=== PATIENT | male | born 1975 | race Caucasian/White ===

== ENCOUNTER 2016-08-01 10:42 | Emergency (ER) | payer OTHER ==
[2016-08-01] MEDS ORDERED: ASPIRIN 81 MG CHEW TABLET As Ordered ONE (10:59)
--- NOTE | 2016-08-01 11:24 | REP ---
Chest x-ray: Two views. History: Chest pain. . Comparison study: No comparison studies . Findings: The lungs are well inflated and free of infiltrate. The pleural angles are sharp. The heart size is normal. Pulmonary vasculature is not increased. No significant bony abnormality is seen. EKG monitoring electrodes overlie the chest. Impression: Negative chest x-ray. Signed by Alfonso Bridges MD 08/01/2016 11:15 A
[2016-08-01] MEDS ORDERED: KETOROLAC 30 MG/ML VIAL (J1885) As Ordered ONE (11:34)
[2016-08-01 12:09] LABS: BASO % 0.9 % (0.0-1.0); EOS # 0.1 K/mm3 (0.0-0.50); EOS % 2.7 % (0.0-3.0); LARGE UNSTAINED CELL # 0.1 K/mm3 (0.0-0.4); LARGE UNSTAINED CELL % 1.2 % (0.0-4.0); LYMPH # 1.5 K/mm3 (1.5-4.5); LYMPH % 30.1 % (24.0-44.0); MEAN CORPUSCULAR HEMOGLOBIN 31.3 pg (27.0-33.0); MEAN CORPUSCULAR HGB CONC 35.2 g/dl (32.0-36.5); MONO # 0.2 K/mm3 (0.0-0.8); NEUTROPHILS # 2.8 K/mm3 (1.8-7.7); NEUTROPHILS % 60.1 % (36.0-66.0); PLATELET COUNT, AUTOMATED 234 k/mm3 (150-450); RED CELL DISTRIBUTION WIDTH 12.8 % (11.5-14.5); WHITE BLOOD COUNT 4.6 K/mm3 (4.0-10.0)
[2016-08-01 12:23] LABS: ANION GAP 9 MEQ/L (8-16); BLOOD UREA NITROGEN 15 MG/DL (7-18); CALCIUM LEVEL 8.8 MG/DL (8.5-10.1); CARBON DIOXIDE LEVEL 25 MEQ/L (21-32); CHLORIDE LEVEL 107 MEQ/L (98-107); CREATININE FOR GFR 1.31 MG/DL (0.70-1.30); GLOMERULAR FILTRATION RATE > 60.0 (>60); GLUCOSE, FASTING 95 MG/DL (70-105); POTASSIUM SERUM 4.1 MEQ/L (3.5-5.1); SODIUM LEVEL 141 MEQ/L (136-145)
[2016-08-01] MEDS ORDERED: GI COCKTAIL 50ML BTL(HYOSCYAMINE/MAALOX/LIDOCAINE VISCOUS)(1:3:1) As Ordered ONE (13:52)
[2016-08-01] MEDS ORDERED: SUCRALFATE 1 GM TAB As Ordered ONE (13:52)
[2016-08-01 14:12] LABS: ALBUMIN 4.2 GM/DL (3.2-5.2); ALBUMIN/GLOBULIN RATIO 1.27 (1.00-1.93); ALKALINE PHOSPHATASE 92 U/L (45-117); ALT/SGPT 40 U/L (12-78); AST/SGOT 20 U/L (15-37); BILIRUBIN,DIRECT < 0.1 MG/DL (0.0-0.2); BILIRUBIN,TOTAL 0.5 MG/DL (0.2-1.0); TOTAL PROTEIN 7.5 GM/DL (6.4-8.2)
--- NOTE | 2016-08-01 14:34 | ECGEPIP ---
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
--- NOTE | 2016-08-01 14:37 | ECGEPIP ---
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
--- NOTE | 2016-08-01 14:52 | EDDOCDS ---
Physician Documentation [facility] Name: Antonino Che Age: 40 yrs Sex: Male : 1975 Arrival Date: 08/01/2016 Time: 10:42 Bed OBSERVATION Private MD: Disposition: 08/01/16 14:26 Discharged to Home/Self Care. Impression: Other chest pain - suspicious for GI etiology. - Condition is Stable. - Discharge Instructions: Angina Pectoris, Nonspecific Chest Pain, Gastroesophageal Reflux Disease, Adult. - Prescriptions for Carafate 100 mg/mL Oral suspension - take 10 milliliter by ORAL route 4 times per day on an empty stomach 1 hour before meals and at bedtime; 200 milliliter. Protonix 40 mg Oral Tablet - take 1 tablet by ORAL route once daily; 30 tablet. - Medication Reconciliation, Local Pharmacy Hours form. - Follow up: Melissa Liu [facility]; When: Tomorrow. - Problem is new. - Symptoms are resolved. Historical: - Allergies: no known allergies; - Home Meds: 1. cyclobenzaprine 10 mg Oral tab took 07/30/16 2. methylprednisolone 4 mg Oral tab once daily (Last dose: 08/01/2016) 3. meloxicam 15 mg oral tab 1 tab once daily (Last dose: 07/31/2016) - PMHx: tendonitis left and right elboew; low back pain; - PSHx: none; - Social history: Smoking status: Patient states former smoker of tobacco. No barriers to communication noted, The patient speaks fluent Ukrainian, Speaks appropriately for age. - Family history: No immediate family members are acutely ill. - : The pt / caregiver states he / she is not on anticoagulants. Home medication list is obtained from the patient, pill bottles. - Exposure Risk Screening:: None identified. Vital Signs: 08/01 10:57 BP 142 / 83 (auto/); mb9 10:58 Pulse 74 MON; Pulse Ox 100% ; mb9 10:59 BP 144 / 76; Pulse 76; Resp 16; Temp 96.7(O); Pulse Ox 100% on R/A; Weight 74.84 kg / kr3 164.99 lbs; Height 5 ft. 7 in. (170.18 cm) (R); 11:27 Pulse 80 MON; Pulse Ox 98% ; mb9 11:27 BP 130 / 76 (auto/); mb9 11:57 Pulse 78 MON; Pulse Ox 97% ; mb9 11:57 BP 129 / 78 (auto/); mb9 12:27 Pulse 82 MON; Pulse Ox 97% ; mb9 12:27 BP 123 / 76 (auto/); mb9 12:57 Pulse 88 MON; Pulse Ox 96% ; mb9 12:57 BP 123 / 84 (auto/); mb9 13:27 Pulse 80 MON; Pulse Ox 97% ; mb9 13:27 BP 123 / 78 (auto/); mb9 13:57 Pulse 80 MON; Pulse Ox 97% ; mb9 13:57 BP 125 / 83 (auto/); mb9 14:27 BP 121 / 75 (auto/); mb9 14:27 Pulse 76 MON; Resp 17; Temp 98.7; Pulse Ox 97% ; mb9 10:59 Body Mass Index 25.84 (74.84 kg, 170.18 cm) kr3 MDM: 10:46 ECG WITH READING ER PHYS+CARDIAG ordered. EDMS 10:55 Aspirin Chewable Tablet 324 mg PO once ordered. jk8 10:57 Chest, 2 View (pa\E\lat) Ordered. EDMS 11:00 Financial registration complete. lg 11:24 Legger Press Operator/Pulse Ox/q 30 min VS ordered. sd1 11:24 IV Saline Lock ordered. sd1 11:24 Rhythm Strip to chart ordered. sd1 11:24 Undress patient appropriately for examination ordered. sd1 11:25 ketorolac 30 mg IVP once ordered. sd1 11:25 Basic Metabolic Profile Ordered. EDMS 11:25 CBC with Diff Ordered. EDMS 11:25 Cardiac Injury Profile Ordered. EDMS 11:25 D-Dimer Quant Ordered. EDMS 11:25 Troponin Ordered. EDMS 11:28 [facility] Payment Agreement was scanned into [email or web address] and attached to record. lg 12:24 Basic Metabolic Profile Reviewed. sd1 12:24 CBC with Diff Reviewed. sd1 12:24 D-Dimer Quant Reviewed. sd1 12:24 Troponin Reviewed. sd1 12:24 Chest, 2 View (pa\E\lat) Reviewed. sd1 12:27 Basic Metabolic Profile Reviewed. sd1 12:27 Cardiac Injury Profile Reviewed. sd1 12:27 Troponin Reviewed. sd1 12:34 REGULAR+DIET ordered. EDMS 13:16 Redraw CIP &Troponin (put time in details section) ordered. sd1 13:17 Repeat EKG (put time details section) ordered. sd1 13:27 Repeat EKG (put time details section) complete. ar3 13:27 Redraw CIP &Troponin (put time in details section) complete. ar3 13:28 ECG WITH READING ER PHYS ordered. EDMS 13:29 CARDIAC MARKER PANEL Ordered. EDMS 13:48 GI Cocktail - (Alum-Mag Hydroxide-Simeth 30 ml, Lidocaine 10 ml, Hyoscyamine 10 ml) PO sd1 once; Pre-mixed 50mL unit dose ordered. 13:48 Sucralfate 1 grams PO once ordered. sd1 13:49 Liver Profile Ordered. EDMS 13:49 Lipase Ordered. EDMS 14:17 CARDIAC MARKER PANEL Reviewed. sd1 14:17 Liver Profile Reviewed. sd1 14:17 Lipase Reviewed. sd1 Administered Medications: 11:01 Drug: Aspirin 324 mg [aspirin 81 mg chewable tablet (4 tabs)] Route: PO; mb9 11:59 Drug: ketorolac 30 mg [ketorolac 30 mg/mL (1 mL) injection solution (1 mL)] Route: IVP; mb9 Site: right antecubital; 13:58 Drug: GI Cocktail - (Alum-Mag Hydroxide-Simeth Suspension 225 mg-200 mg-25 mg/5 mL 30 mb9 ml, Lidocaine Liquid 2 % 10 ml, Hyoscyamine Liquid 10 ml) Route: PO; 13:59 Drug: Sucralfate 1 grams [sucralfate 1 gram tablet (1 tabs)] Route: PO; mb9 Signatures: Dispatcher [employer] Astrid Alas MD MD sd1 Joe Meraz, Reg Reg lg Yamile Hunt,RN RN kr3 Becca Alejo, MASS SPECTROSCOPIST MASS SPECTROSCOPIST ar3 Gurmeet Nichols,KIMBERLI RN mb9 Phi Mariano PA-C PA-C jk8 The chart was reviewed and I authenticate all verbal orders and agree with the evaluation and treatment provided.Attachments: 11:28 [facility] Payment Agreement lg MTDD
--- NOTE | 2016-08-01 14:52 | EDDOCDS ---
Nurse's Notes [facility] Name: Antonino Che Age: 40 yrs Sex: Male : 1975 Arrival Date: 08/01/2016 Time: 10:42 Bed OBSERVATION Private MD: Diagnosis: Other chest pain-suspicious for GI etiology Presentation: 08/01 10:46 Presenting complaint: Patient states: developed 'pounding heart beat' after taking kr3 Cyclobenzaprine on Tuesday noight. Was able to sleep Tuesday but woke on Tuesday with chest pain. Sleep with no disturbance Tuesday night and woke with no pain but developed as morning progressed. Aspirin was not taken prior to arrival. took ASA 07/31/16. Adult Sepsis Screening: The patient does not have new or worsening altered mentation. Patient's respiratory rate is less than 22. Systolic blood pressure is greater than 100. Patient has a qSOFA score of 0- Negative Sepsis Screen. Suicide/Homicide risk assessment- the patient denies having any suicidal and/or homicidal ideations and does not present with any other emotional, behavioral or mental health complaints. 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 Transition of care: patient was not received from another setting of care. 10:46 Method Of Arrival: Walkin/Carried/Asstd kr3 11:03 Acuity: EMMIE Level 3 mb9 Triage Assessment: 10:52 General: Appears in no apparent distress, comfortable, Behavior is cooperative. Pain: kr3 Location: center of chest Pain currently is 2 out of 10 on a pain scale. At worst was 6 out of 10 on a pain scale. Pain radiates to left arm Quality of pain is described as aching. Pt Declines HIV testing. Neurological: Level of Consciousness is awake, alert. Cardiovascular: Chest pain is described as mild, radiates to left arm(s) episodes are intermittent began 07/30/16. Respiratory: Respiratory effort is even, unlabored, Denies shortness of breath. GI: Denies nausea. Derm: Skin is pink, warm & dry. Historical: - Allergies: no known allergies; - Home Meds: 1. cyclobenzaprine 10 mg Oral tab took 07/30/16 2. methylprednisolone 4 mg Oral tab once daily (Last dose: 08/01/2016) 3. meloxicam 15 mg oral tab 1 tab once daily (Last dose: 07/31/2016) - PMHx: tendonitis left and right elboew; low back pain; - PSHx: none; - Social history: Smoking status: Patient states former smoker of tobacco. No barriers to communication noted, The patient speaks fluent Surinamese, Speaks appropriately for age. - Family history: No immediate family members are acutely ill. - : The pt / caregiver states he / she is not on anticoagulants. Home medication list is obtained from the patient, pill bottles. - Exposure Risk Screening:: None identified. Screenin:15 Screening information is obtained from the patient. Fall risk: No risks identified. mb9 Assistance ADL's: requires no assistance with activities of daily living. Abuse/DV Screen: The patient / caregiver reports he/she is: not in a situation that causes fear, pain or injury. Nutritional screening: No deficits noted. Advance Directives: There is no active DNR order. home support is adequate. Assessment: 11:15 General: Appears in no apparent distress, comfortable, Behavior is appropriate for age, mb9 cooperative. Neurological: Level of Consciousness is awake, alert, Oriented to person, place, time. Cardiovascular: Capillary refill < 3 seconds Heart tones S1 S2 present Rhythm is sinus rhythm No ectopy. Chest pain is described as Pain is 5 out of 10 on a pain scale. quality is dull and aching is located in anterior chest wall radiates to left arm(s) back episodes are continuous last > 5 minutes began 1 hour prior to arrival is aggravated by pt reports the pain is made worse with palpation. Cardiovascular: Chest pain pt reports he began a new exercise regiment on Tuesday. . Respiratory: Airway is patent Respiratory effort is even, unlabored, Breath sounds are clear bilaterally. Respiratory: Reports cough that is non-productive. 12:49 Reassessment: Patient appears in no apparent distress at this time. Patient states mb9 feeling better. Patient states symptoms have improved. General: Appears comfortable, Behavior is appropriate for age, cooperative. Neurological: Level of Consciousness is awake, alert, Oriented to person, place, time. Respiratory: Airway is patent Respiratory effort is even, unlabored. 12:49 Cardiovascular: Rhythm is sinus rhythm Chest pain is described as Pain is 1 out of 10 mb9 on a pain scale. 13:37 Reassessment: Patient states symptoms have not improved. Adult Sepsis Screening: The mb9 patient does not have new or worsening altered mentation. Patient's respiratory rate is less than 22. Systolic blood pressure is greater than 100. Patient has a qSOFA score of 0- Negative Sepsis Screen. General: Appears in no apparent distress, comfortable, Behavior is appropriate for age, cooperative. Cardiovascular: Rhythm is sinus rhythm Chest pain is described as Pain is 5 out of 10 on a pain scale. is aggravated by eating, pt states, "I just finished eating like 20 minutes ago and now the pain is back". 14:43 Reassessment: Patient appears in no apparent distress at this time. Patient states mb9 feeling better. General: Appears in no apparent distress, Behavior is appropriate for age, cooperative. Respiratory: Airway Respiratory effort is even, Breath sounds are clear bilaterally. Vital Signs: 10:57 BP 142 / 83 (auto/); mb9 10:58 Pulse 74 MON; Pulse Ox 100% ; mb9 10:59 BP 144 / 76; Pulse 76; Resp 16; Temp 96.7(O); Pulse Ox 100% on R/A; Weight 74.84 kg; kr3 Height 5 ft. 7 in. (170.18 cm) (R); 11:27 Pulse 80 MON; Pulse Ox 98% ; mb9 11:27 BP 130 / 76 (auto/); mb9 11:57 Pulse 78 MON; Pulse Ox 97% ; mb9 11:57 BP 129 / 78 (auto/); mb9 12:27 Pulse 82 MON; Pulse Ox 97% ; mb9 12:27 BP 123 / 76 (auto/); mb9 12:57 Pulse 88 MON; Pulse Ox 96% ; mb9 12:57 BP 123 / 84 (auto/); mb9 13:27 Pulse 80 MON; Pulse Ox 97% ; mb9 13:27 BP 123 / 78 (auto/); mb9 13:57 Pulse 80 MON; Pulse Ox 97% ; mb9 13:57 BP 125 / 83 (auto/); mb9 14:27 BP 121 / 75 (auto/); mb9 14:27 Pulse 76 MON; Resp 17; Temp 98.7; Pulse Ox 97% ; mb9 10:59 Body Mass Index 25.84 (74.84 kg, 170.18 cm) kr3 Vitals: 10:43 Log In Time: August 01, 2016 at 10:43. RN notified that patient meets Red Flag jlf criteria. ED Course: 10:43 Patient visited by Marycruz Seo PCA. jlf 10:43 Patient moved to Waiting jlf 10:44 Patient visited by Marycruz Seo PCA. jlf 10:44 Patient moved to PD kr3 10:53 Phi Mariano PA-C is PHCP. jk8 10:53 Astrid Fletcher MD is Attending Physician. jk8 10:53 Patient visited by Phi Mariano PA-C. jk8 10:55 Patient moved to 19 kr3 11:03 Triage Initiated mb9 11:11 Astrid Fletcher MD is Attending Physician. sd1 11:15 The patient / caregiver is instructed regarding the plan of care and ED course. Patient hunter has correct armband on for positive identification. Placed in gown. monitor and storage bin tender on. Pulse ox on. NIBP on. 11:28 [facility] Payment Agreement was scanned into View [employer] Chew and attached to record. lg 11:30 Patient visited by Susy Singh PCA. ct3 11:38 Chest, 2 View (pa\\E\\lat) Returned. EDMS 12:00 Basic Metabolic Profile Sent. mb9 12:00 CBC with Diff Sent. mb9 12:00 Cardiac Injury Profile Sent. mb9 12:00 D-Dimer Quant Sent. mb9 12:00 Troponin Sent. mb9 12:00 Inserted saline lock: 20 gauge in right antecubital area and blood collected. The mb9 patient tolerated the procedure well. 12:00 Missed attempts: 18 gauge in right antecubital area. mb9 12:32 Patient moved to OBSERVATION sd1 12:50 Patient visited by Susy Singh PCA. ct3 12:50 Diet: Patient given regular meal. ct3 13:46 CARDIAC MARKER PANEL Sent. mb9 13:57 Patient visited by Alyssa Abel. lr2 13:57 EKG done. (by ED staff). Reviewed by Astrid Fletcher MD. lr2 14:25 Melissa Liu [facility] is Referral Physician. sd1 14:27 Discontinued IV lock intact, bleeding controlled, pressure dressing applied, No mb9 redness/swelling at site. No procedures done that require assistance. 14:47 EKG-ADULT Returned. EDMS 14:47 ECG WITH READING ER PHYS Returned. EDMS Administered Medications: 11:01 Drug: Aspirin 324 mg [aspirin 81 mg chewable tablet (4 tabs)] Route: PO; mb9 11:59 Drug: ketorolac 30 mg [ketorolac 30 mg/mL (1 mL) injection solution (1 mL)] Route: IVP; mb9 Site: right antecubital; 13:58 Drug: GI Cocktail - (Alum-Mag Hydroxide-Simeth Suspension 225 mg-200 mg-25 mg/5 mL 30 mb9 ml, Lidocaine Liquid 2 % 10 ml, Hyoscyamine Liquid 10 ml) Route: PO; 13:59 Drug: Sucralfate 1 grams [sucralfate 1 gram tablet (1 tabs)] Route: PO; mb9 Order Results: Lab Order: Basic Metabolic Profile; SPEC'M 08/01/16 11:56 Test: GLUCOSE, FASTING; Value: 95; Range: 70-105; Units: MG/DL; Status: F Test: BLOOD UREA NITROGEN; Value: 15; Range: 7-18; Units: MG/DL; Status: F Test: CREATININE FOR GFR; Value: 1.31; Range: 0.70-1.30; Abnormal: Above high normal; Units: MG/DL; Status: F Test: GLOMERULAR FILTRATION RATE; Value: > 60.0; Range: >60; Status: F Test: SODIUM LEVEL; Value: 141; Range: 136-145; Units: MEQ/L; Status: F Test: POTASSIUM SERUM; Value: 4.1; Range: 3.5-5.1; Units: MEQ/L; Status: F Test: CHLORIDE LEVEL; Value: 107; Range: 98-107; Units: MEQ/L; Status: F Test: CARBON DIOXIDE LEVEL; Value: 25; Range: 21-32; Units: MEQ/L; Status: F Test: ANION GAP; Value: 9; Range: 8-16; Units: MEQ/L; Status: F Test: CALCIUM LEVEL; Value: 8.8; Range: 8.5-10.1; Units: MG/DL; Status: F Test Note: ; Units are mL/min/1.73 m2 Chronic Kidney Disease Staging per NKF: Stage I & II GFR >=60 Normal to Mildly Decreased Stage III GFR 30-59 Moderately Decreased Stage IV GFR 15-29 Severely Decreased Stage V GFR <15 Very Little GFR Left ESRD GFR <15 on INDUSTRIAL ENGINEERING TECHNOLOGIST Lab Order: CBC with Diff; SPEC'M 08/01/16 11:56 Test: WHITE BLOOD COUNT; Value: 4.6; Range: 4.0-10.0; Units: K/mm3; Status: F Test: RED BLOOD COUNT; Value: 4.93; Range: 4.30-6.10; Units: M/mm3; Status: F Test: HEMOGLOBIN; Value: 15.4; Range: 14.0-18.0; Units: g/dl; Status: F Test: HEMATOCRIT; Value: 43.9; Range: 42.0-52.0; Units: %; Status: F Test: MEAN CORPUSCULAR VOLUME; Value: 89.0; Range: 80.0-96.0; Units: fl; Status: F Test: MEAN CORPUSCULAR HEMOGLOBIN; Value: 31.3; Range: 27.0-33.0; Units: pg; Status: F Test: MEAN CORPUSCULAR HGB CONC; Value: 35.2; Range: 32.0-36.5; Units: g/dl; Status: F Test: RED CELL DISTRIBUTION WIDTH; Value: 12.8; Range: 11.5-14.5; Units: %; Status: F Test: PLATELET COUNT, AUTOMATED; Value: 234; Range: 150-450; Units: k/mm3; Status: F Test: NEUTROPHILS %; Value: 60.1; Range: 36.0-66.0; Units: %; Status: F Test: LYMPH %; Value: 30.1; Range: 24.0-44.0; Units: %; Status: F Test: MONO %; Value: 5.0; Range: 0.0-5.0; Units: %; Status: F Test: EOS %; Value: 2.7; Range: 0.0-3.0; Units: %; Status: F Test: BASO %; Value: 0.9; Range: 0.0-1.0; Units: %; Status: F Test: LARGE UNSTAINED CELL %; Value: 1.2; Range: 0.0-4.0; Units: %; Status: F Test: NEUTROPHILS #; Value: 2.8; Range: 1.8-7.7; Units: K/mm3; Status: F Test: LYMPH #; Value: 1.5; Range: 1.5-4.5; Units: K/mm3; Status: F Test: MONO #; Value: 0.2; Range: 0.0-0.8; Units: K/mm3; Status: F Test: EOS #; Value: 0.1; Range: 0.0-0.50; Units: K/mm3; Status: F Test: BASO #; Value: 0.0; Range: 0.0-0.2; Units: K/mm3; Status: F Test: LARGE UNSTAINED CELL #; Value: 0.1; Range: 0.0-0.4; Units: K/mm3; Status: F Lab Order: Cardiac Injury Profile; SPEC' 08/01/16 11:56 Test: CPK CREATINE PHOSPHOKINASE; Value: 198; Range: 39-308; Units: U/L; Status: F Test: CK-MB VALUE MASS; Value: 1.6; Range: 0.0-3.6; Units: NG/ML; Status: F Test: MB/CK RELATIVE INDEX; Value: 0.80; Range: < OR =4; Status: F Test Note: ; DIAGNOSIS CRITERIA MMB ng/ml Relative Index (RI) NON-AMI < or = 5 N/A ALMODOVAR ZONE > 5 < or = 4 AMI > 5 > 4 Lab Order: D-Dimer Quant; SPEC' 08/01/16 11:56 Test: D-DIMER QUANT; Value: 270.7; Range: <500; Units: ng/ml; Status: F Lab Order: Troponin; SPEC' 08/01/16 11:56 Test: TROPONIN I; Value: < 0.02; Range: < 0.10; Units: NG/ML; Status: F Test Note: ; Troponin I Reference Interval for Vend LOCI: 99th Percentile= 0.00-0.045 ng/ml Risk Stratification: <= 0.10 ng/ml Decreased Risk for Adverse Clinical Events. 0.10-1.50 ng/ml Increased Risk for Adverse Clinical Events. Evaluation of additional criterion and/or repeat testing in 2-6 hours is suggested to rule out myocardial damage. >= 1.50 ng/ml Indicative of Myocardial Injury. Lab Order: CARDIAC MARKER PANEL; SPEC'M 08/01/16 13:44 Test: CPK CREATINE PHOSPHOKINASE; Value: 198; Range: 39-308; Units: U/L; Status: F Test: CK-MB VALUE MASS; Value: 1.3; Range: 0.0-3.6; Units: NG/ML; Status: F Test: MB/CK RELATIVE INDEX; Value: 0.65; Range: < OR =4; Status: F Test: TROPONIN I; Value: < 0.02; Range: < 0.10; Units: NG/ML; Status: F Test Note: ; DIAGNOSIS CRITERIA MMB ng/ml Relative Index (RI) NON-AMI < or = 5 N/A ALMODOVAR ZONE > 5 < or = 4 AMI > 5 > 4 Lab Order: Liver Profile; SPEC'M 08/01/16 11:24 Test: AST/SGOT; Value: 20; Range: 15-37; Units: U/L; Status: F Test: ALT/SGPT; Value: 40; Range: 12-78; Units: U/L; Status: F Test: ALKALINE PHOSPHATASE; Value: 92; Range: 45-117; Units: U/L; Status: F Test: BILIRUBIN,TOTAL; Value: 0.5; Range: 0.2-1.0; Units: MG/DL; Status: F Test: BILIRUBIN,DIRECT; Value: < 0.1; Range: 0.0-0.2; Units: MG/DL; Status: F Test: TOTAL PROTEIN; Value: 7.5; Range: 6.4-8.2; Units: GM/DL; Status: F Test: ALBUMIN; Value: 4.2; Range: 3.2-5.2; Units: GM/DL; Status: F Test: ALBUMIN/GLOBULIN RATIO; Value: 1.27; Range: 1.00-1.93; Status: F Lab Order: Lipase; SPEC'M 08/01/16 11:24 Test: LIPASE; Value: 145; Range: 73-393; Units: U/L; Status: F Radiology Order: EKG-ADULT Test: EKG-ADULT REASON FOR EXAMINATION: Chest Pain; Stationary ECG Study; [facility] - ED; ; Test Date: 2016-08-01; Pat Name: [facility] Department:; Room: -; Gender: M Machine 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 .; ; Comparison study: No comparison studies .; ; Findings: The lungs are well inflated and free of infiltrate. The pleural; angles are sharp. The heart size is normal. Pulmonary vasculature is not; increased. No significant bony abnormality is seen. EKG monitoring electrodes; overlie the chest.; ; Impression:; ; Negative chest x-ray.; ; ; Signed by; Alfonso Bridges MD 08/01/2016 11:15 A; Radiology Order: ECG WITH READING ER PHYS Test: ECG WITH READING ER PHYS REASON FOR EXAMINATION: CHEST PAIN; Stationary ECG Study; [facility] - ED; ; Test Date: 2016-08-01; Pat Name: [facility] Department:; Room: -; Gender: M Machine Milker: felecia; : 1975 Requested By: Astrid Fletcher; Order Number: [id number] Reading MD: Keith Hodges; Measurements; Intervals [place]; Rate: 84 P: 19; IA: 161 QRS: 24; QRSD: 80 T: 34; QT: 344; QTc: 409; Interpretive Statements; SINUS RHYTHM; ; Electronically Signed On 08-01-2016 14:37:26 EST by Keith Hodges; Outcome: 14:26 Discharge ordered by Provider. sd1 14:27 Discharge Assessment: Patient awake, alert and oriented x 3. No cognitive and/or mb9 functional deficits noted. Patient verbalized understanding of disposition instructions. patient administered narcotics - no. The following High Risk Discharge criteria are identified: None. Condition: good Condition: stable Condition: improved. Discharge instructions given to patient, Instructed on discharge instructions, follow up and referral plans. medication usage, Demonstrated understanding of instructions, medications, Pt was receptive of discharge instructions/ teaching. Prescriptions given X 2. No special radiology studies were completed. Property :Personal belongings accompany Pt. 14:51 Patient left the ED. mb9 Signatures: Dispatcher [employer] EDMS Astrid Fletcher MD MD sd1 Joe Meraz, Reg Reg lg Yamile Hunt,RN RN kr3 Susy Singh, TIRE SERVICE TECHNICIAN TIRE SERVICE TECHNICIAN ct3 Marycruz Seo, TIRE SERVICE TECHNICIAN TIRE SERVICE TECHNICIAN jlf Gurmeet NicholsRN RN mb9 Phi Mariano, PA-C PA-C [id number] Alyssa Abel lr2 MUNIRA
--- NOTE | 2016-08-03 15:53 | EDDOCDS ---
Physician Documentation [facility] Name: Antonino Che Age: 40 yrs Sex: Male : 1975 Arrival Date: 08/01/2016 Time: 10:42 Bed OBSERVATION Private MD: Disposition: 08/01/16 14:26 Discharged to Home/Self Care. Impression: Other chest pain - suspicious for GI etiology. - Condition is Stable. - Discharge Instructions: Angina Pectoris, Nonspecific Chest Pain, Gastroesophageal Reflux Disease, Adult. - Prescriptions for Carafate 100 mg/mL Oral suspension - take 10 milliliter by ORAL route 4 times per day on an empty stomach 1 hour before meals and at bedtime; 200 milliliter. Protonix 40 mg Oral Tablet - take 1 tablet by ORAL route once daily; 30 tablet. - Medication Reconciliation, Local Pharmacy Hours form. - Follow up: Melissa Liu [facility]; When: Tomorrow. - Problem is new. - Symptoms are resolved. Historical: - Allergies: no known allergies; - Home Meds: 1. cyclobenzaprine 10 mg Oral tab took 07/30/16 2. methylprednisolone 4 mg Oral tab once daily (Last dose: 08/01/2016) 3. meloxicam 15 mg oral tab 1 tab once daily (Last dose: 07/31/2016) - PMHx: tendonitis left and right elboew; low back pain; - PSHx: none; - Social history: Smoking status: Patient states former smoker of tobacco. No barriers to communication noted, The patient speaks fluent Czech, Speaks appropriately for age. - Family history: No immediate family members are acutely ill. - : The pt / caregiver states he / she is not on anticoagulants. Home medication list is obtained from the patient, pill bottles. - Exposure Risk Screening:: None identified. Vital Signs: 08/01 10:57 BP 142 / 83 (auto/); mb9 10:58 Pulse 74 MON; Pulse Ox 100% ; mb9 10:59 BP 144 / 76; Pulse 76; Resp 16; Temp 96.7(O); Pulse Ox 100% on R/A; Weight 74.84 kg / kr3 164.99 lbs; Height 5 ft. 7 in. (170.18 cm) (R); 11:27 Pulse 80 MON; Pulse Ox 98% ; mb9 11:27 BP 130 / 76 (auto/); mb9 11:57 Pulse 78 MON; Pulse Ox 97% ; mb9 11:57 BP 129 / 78 (auto/); mb9 12:27 Pulse 82 MON; Pulse Ox 97% ; mb9 12:27 BP 123 / 76 (auto/); mb9 12:57 Pulse 88 MON; Pulse Ox 96% ; mb9 12:57 BP 123 / 84 (auto/); mb9 13:27 Pulse 80 MON; Pulse Ox 97% ; mb9 13:27 BP 123 / 78 (auto/); mb9 13:57 Pulse 80 MON; Pulse Ox 97% ; mb9 13:57 BP 125 / 83 (auto/); mb9 14:27 BP 121 / 75 (auto/); mb9 14:27 Pulse 76 MON; Resp 17; Temp 98.7; Pulse Ox 97% ; mb9 10:59 Body Mass Index 25.84 (74.84 kg, 170.18 cm) kr3 MDM: 10:46 ECG WITH READING ER PHYS+CARDIAG ordered. EDMS 10:55 Aspirin Chewable Tablet 324 mg PO once ordered. jk8 10:57 Chest, 2 View (pa\E\lat) Ordered. EDMS 11:00 Financial registration complete. lg 11:24 [place]hener/Pulse Ox/q 30 min VS ordered. sd1 11:24 IV Saline Lock ordered. sd1 11:24 Rhythm Strip to chart ordered. sd1 11:24 Undress patient appropriately for examination ordered. sd1 11:25 ketorolac 30 mg IVP once ordered. sd1 11:25 Basic Metabolic Profile Ordered. EDMS 11:25 CBC with Diff Ordered. EDMS 11:25 Cardiac Injury Profile Ordered. EDMS 11:25 D-Dimer Quant Ordered. EDMS 11:25 Troponin Ordered. EDMS 11:28 [facility] Payment Agreement was scanned into [employer] and attached to record. lg 12:24 Basic Metabolic Profile Reviewed. sd1 12:24 CBC with Diff Reviewed. sd1 12:24 D-Dimer Quant Reviewed. sd1 12:24 Troponin Reviewed. sd1 12:24 Chest, 2 View (pa\E\lat) Reviewed. sd1 12:27 Basic Metabolic Profile Reviewed. sd1 12:27 Cardiac Injury Profile Reviewed. sd1 12:27 Troponin Reviewed. sd1 12:34 REGULAR+DIET ordered. EDMS 13:16 Redraw CIP &Troponin (put time in details section) ordered. sd1 13:17 Repeat EKG (put time details section) ordered. sd1 13:27 Repeat EKG (put time details section) complete. ar3 13:27 Redraw CIP &Troponin (put time in details section) complete. ar3 13:28 ECG WITH READING ER PHYS ordered. EDMS 13:29 CARDIAC MARKER PANEL Ordered. EDMS 13:48 GI Cocktail - (Alum-Mag Hydroxide-Simeth 30 ml, Lidocaine 10 ml, Hyoscyamine 10 ml) PO sd1 once; Pre-mixed 50mL unit dose ordered. 13:48 Sucralfate 1 grams PO once ordered. sd1 13:49 Liver Profile Ordered. EDMS 13:49 Lipase Ordered. EDMS 14:17 CARDIAC MARKER PANEL Reviewed. sd1 14:17 Liver Profile Reviewed. sd1 14:17 Lipase Reviewed. sd1 16:02 T-Sheet-- Draft Copy was scanned into [employer] and attached to record. gb 16:02 ECG/EKG was scanned into [employer] and attached to record. gb Administered Medications: 11:01 Drug: Aspirin 324 mg [aspirin 81 mg chewable tablet (4 tabs)] Route: PO; mb9 11:59 Drug: ketorolac 30 mg [ketorolac 30 mg/mL (1 mL) injection solution (1 mL)] Route: IVP; mb9 Site: right antecubital; 13:58 Drug: GI Cocktail - (Alum-Mag Hydroxide-Simeth Suspension 225 mg-200 mg-25 mg/5 mL 30 mb9 ml, Lidocaine Liquid 2 % 10 ml, Hyoscyamine Liquid 10 ml) Route: PO; 13:59 Drug: Sucralfate 1 grams [sucralfate 1 gram tablet (1 tabs)] Route: PO; mb9 Signatures: Dispatcher [employer] EDMS Astrid Fletcher MD MD sd1 Siomara Marquez, Reg Reg gb Joe Meraz, Reg Reg lg Yamile Hunt,RN RN kr3 Becca Alejo, NEEDLE PUNCH MACHINE OPERATOR NEEDLE PUNCH MACHINE OPERATOR ar3 Gurmeet NicholsRN RN mb9 Phi Mariano PA-C PA-C jk8 The chart was reviewed and I authenticate all verbal orders and agree with the evaluation and treatment provided.Attachments: 11:28 [facility] Payment Agreement lg 16:02 T-Sheet-- Draft Copy gb 16:02 ECG/EKG gb Chart Complete MTDD
--- NOTE | 2016-08-03 15:53 | EDDOCDS ---
Physician Documentation [facility] Name: Antonino Che Age: 40 yrs Sex: Male : 1975 Arrival Date: 08/01/2016 Time: 10:42 Bed OBSERVATION Private MD: Disposition: 08/01/16 14:26 Discharged to Home/Self Care. Impression: Other chest pain - suspicious for GI etiology. - Condition is Stable. - Discharge Instructions: Angina Pectoris, Nonspecific Chest Pain, Gastroesophageal Reflux Disease, Adult. - Prescriptions for Carafate 100 mg/mL Oral suspension - take 10 milliliter by ORAL route 4 times per day on an empty stomach 1 hour before meals and at bedtime; 200 milliliter. Protonix 40 mg Oral Tablet - take 1 tablet by ORAL route once daily; 30 tablet. - Medication Reconciliation, Local Pharmacy Hours form. - Follow up: Melissa Liu [facility]; When: Tomorrow. - Problem is new. - Symptoms are resolved. Historical: - Allergies: no known allergies; - Home Meds: 1. cyclobenzaprine 10 mg Oral tab took 07/30/16 2. methylprednisolone 4 mg Oral tab once daily (Last dose: 08/01/2016) 3. meloxicam 15 mg oral tab 1 tab once daily (Last dose: 07/31/2016) - PMHx: tendonitis left and right elboew; low back pain; - PSHx: none; - Social history: Smoking status: Patient states former smoker of tobacco. No barriers to communication noted, The patient speaks fluent Romansh, Speaks appropriately for age. - Family history: No immediate family members are acutely ill. - : The pt / caregiver states he / she is not on anticoagulants. Home medication list is obtained from the patient, pill bottles. - Exposure Risk Screening:: None identified. Vital Signs: 08/01 10:57 BP 142 / 83 (auto/); mb9 10:58 Pulse 74 MON; Pulse Ox 100% ; mb9 10:59 BP 144 / 76; Pulse 76; Resp 16; Temp 96.7(O); Pulse Ox 100% on R/A; Weight 74.84 kg / kr3 164.99 lbs; Height 5 ft. 7 in. (170.18 cm) (R); 11:27 Pulse 80 MON; Pulse Ox 98% ; mb9 11:27 BP 130 / 76 (auto/); mb9 11:57 Pulse 78 MON; Pulse Ox 97% ; mb9 11:57 BP 129 / 78 (auto/); mb9 12:27 Pulse 82 MON; Pulse Ox 97% ; mb9 12:27 BP 123 / 76 (auto/); mb9 12:57 Pulse 88 MON; Pulse Ox 96% ; mb9 12:57 BP 123 / 84 (auto/); mb9 13:27 Pulse 80 MON; Pulse Ox 97% ; mb9 13:27 BP 123 / 78 (auto/); mb9 13:57 Pulse 80 MON; Pulse Ox 97% ; mb9 13:57 BP 125 / 83 (auto/); mb9 14:27 BP 121 / 75 (auto/); mb9 14:27 Pulse 76 MON; Resp 17; Temp 98.7; Pulse Ox 97% ; mb9 10:59 Body Mass Index 25.84 (74.84 kg, 170.18 cm) kr3 MDM: 10:46 ECG WITH READING ER PHYS+CARDIAG ordered. EDMS 10:55 Aspirin Chewable Tablet 324 mg PO once ordered. jk8 10:57 Chest, 2 View (pa\E\lat) Ordered. EDMS 11:00 Financial registration complete. lg 11:24 Sourcing Internship/Pulse Ox/q 30 min VS ordered. sd1 11:24 IV Saline Lock ordered. sd1 11:24 Rhythm Strip to chart ordered. sd1 11:24 Undress patient appropriately for examination ordered. sd1 11:25 ketorolac 30 mg IVP once ordered. sd1 11:25 Basic Metabolic Profile Ordered. EDMS 11:25 CBC with Diff Ordered. EDMS 11:25 Cardiac Injury Profile Ordered. EDMS 11:25 D-Dimer Quant Ordered. EDMS 11:25 Troponin Ordered. EDMS 11:28 [facility] [place] Agreement was scanned into [employer] and attached to record. lg 12:24 Basic Metabolic Profile Reviewed. sd1 12:24 CBC with Diff Reviewed. sd1 12:24 D-Dimer Quant Reviewed. sd1 12:24 Troponin Reviewed. sd1 12:24 Chest, 2 View (pa\E\lat) Reviewed. sd1 12:27 Basic Metabolic Profile Reviewed. sd1 12:27 Cardiac Injury Profile Reviewed. sd1 12:27 Troponin Reviewed. sd1 12:34 REGULAR+DIET ordered. EDMS 13:16 Redraw CIP &Troponin (put time in details section) ordered. sd1 13:17 Repeat EKG (put time details section) ordered. sd1 13:27 Repeat EKG (put time details section) complete. ar3 13:27 Redraw CIP &Troponin (put time in details section) complete. ar3 13:28 ECG WITH READING ER PHYS ordered. EDMS 13:29 CARDIAC MARKER PANEL Ordered. EDMS 13:48 GI Cocktail - (Alum-Mag Hydroxide-Simeth 30 ml, Lidocaine 10 ml, Hyoscyamine 10 ml) PO sd1 once; Pre-mixed 50mL unit dose ordered. 13:48 Sucralfate 1 grams PO once ordered. sd1 13:49 Liver Profile Ordered. EDMS 13:49 Lipase Ordered. EDMS 14:17 CARDIAC MARKER PANEL Reviewed. sd1 14:17 Liver Profile Reviewed. sd1 14:17 Lipase Reviewed. sd1 16:02 T-Sheet-- Draft Copy was scanned into [employer] and attached to record. gb 16:02 ECG/EKG was scanned into [employer] and attached to record. gb Administered Medications: 11:01 Drug: Aspirin 324 mg [aspirin 81 mg chewable tablet (4 tabs)] Route: PO; mb9 11:59 Drug: ketorolac 30 mg [ketorolac 30 mg/mL (1 mL) injection solution (1 mL)] Route: IVP; mb9 Site: right antecubital; 13:58 Drug: GI Cocktail - (Alum-Mag Hydroxide-Simeth Suspension 225 mg-200 mg-25 mg/5 mL 30 mb9 ml, Lidocaine Liquid 2 % 10 ml, Hyoscyamine Liquid 10 ml) Route: PO; 13:59 Drug: Sucralfate 1 grams [sucralfate 1 gram tablet (1 tabs)] Route: PO; mb9 Signatures: Dispatcher [employer] EDMS Astrid Fletcher MD MD sd1 Siomara Marquez, Reg Reg gb Joe Meraz, Reg Reg lg Yamile Hunt,RN RN kr3 Becca Alejo, BOX HINGE AND LOCK ATTACHER BOX HINGE AND LOCK ATTACHER ar3 Gurmeet NicholsRN RN mb9 Phi Mariano PA-C PA-C jk8 The chart was reviewed and I authenticate all verbal orders and agree with the evaluation and treatment provided.Attachments: 11:28 [facility] [place] [place] Agreement lg 16:02 T-Sheet-- Draft Copy gb 16:02 ECG/EKG gb Chart Complete MTDD
--- NOTE | 2016-08-03 15:53 | EDDOCDS ---
Nurse's Notes [facility] Name: Antonino Che Age: 40 yrs Sex: Male : 1975 Arrival Date: 08/01/2016 Time: 10:42 Bed OBSERVATION Private MD: Diagnosis: Other chest pain-suspicious for GI etiology Presentation: 08/01 10:46 Presenting complaint: Patient states: developed 'pounding heart beat' after taking kr3 Cyclobenzaprine on Tuesday noight. Was able to sleep Tuesday but woke on Tuesday with chest pain. Sleep with no disturbance Tuesday night and woke with no pain but developed as morning progressed. Aspirin was not taken prior to arrival. took ASA 07/31/16. Adult Sepsis Screening: The patient does not have new or worsening altered mentation. Patient's respiratory rate is less than 22. Systolic blood pressure is greater than 100. Patient has a qSOFA score of 0- Negative Sepsis Screen. Suicide/Homicide risk assessment- the patient denies having any suicidal and/or homicidal ideations and does not present with any other emotional, behavioral or mental health complaints. 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 Transition of care: patient was not received from another setting of care. 10:46 Method Of Arrival: Walkin/Carried/Asstd kr3 11:03 Acuity: EMMIE Level 3 mb9 Triage Assessment: 10:52 General: Appears in no apparent distress, comfortable, Behavior is cooperative. Pain: kr3 Location: center of chest Pain currently is 2 out of 10 on a pain scale. At worst was 6 out of 10 on a pain scale. Pain radiates to left arm Quality of pain is described as aching. Pt Declines HIV testing. Neurological: Level of Consciousness is awake, alert. Cardiovascular: Chest pain is described as mild, radiates to left arm(s) episodes are intermittent began 07/30/16. Respiratory: Respiratory effort is even, unlabored, Denies shortness of breath. GI: Denies nausea. Derm: Skin is pink, warm & dry. Historical: - Allergies: no known allergies; - Home Meds: 1. cyclobenzaprine 10 mg Oral tab took 07/30/16 2. methylprednisolone 4 mg Oral tab once daily (Last dose: 08/01/2016) 3. meloxicam 15 mg oral tab 1 tab once daily (Last dose: 07/31/2016) - PMHx: tendonitis left and right elboew; low back pain; - PSHx: none; - Social history: Smoking status: Patient states former smoker of tobacco. No barriers to communication noted, The patient speaks fluent Telugu, Speaks appropriately for age. - Family history: No immediate family members are acutely ill. - : The pt / caregiver states he / she is not on anticoagulants. Home medication list is obtained from the patient, pill bottles. - Exposure Risk Screening:: None identified. Screenin:15 Screening information is obtained from the patient. Fall risk: No risks identified. mb9 Assistance ADL's: requires no assistance with activities of daily living. Abuse/DV Screen: The patient / caregiver reports he/she is: not in a situation that causes fear, pain or injury. Nutritional screening: No deficits noted. Advance Directives: There is no active DNR order. home support is adequate. Assessment: 11:15 General: Appears in no apparent distress, comfortable, Behavior is appropriate for age, mb9 cooperative. Neurological: Level of Consciousness is awake, alert, Oriented to person, place, time. Cardiovascular: Capillary refill < 3 seconds Heart tones S1 S2 present Rhythm is sinus rhythm No ectopy. Chest pain is described as Pain is 5 out of 10 on a pain scale. quality is dull and aching is located in anterior chest wall radiates to left arm(s) back episodes are continuous last > 5 minutes began 1 hour prior to arrival is aggravated by pt reports the pain is made worse with palpation. Cardiovascular: Chest pain pt reports he began a new exercise regiment on Tuesday. . Respiratory: Airway is patent Respiratory effort is even, unlabored, Breath sounds are clear bilaterally. Respiratory: Reports cough that is non-productive. 12:49 Reassessment: Patient appears in no apparent distress at this time. Patient states mb9 feeling better. Patient states symptoms have improved. General: Appears comfortable, Behavior is appropriate for age, cooperative. Neurological: Level of Consciousness is awake, alert, Oriented to person, place, time. Respiratory: Airway is patent Respiratory effort is even, unlabored. 12:49 Cardiovascular: Rhythm is sinus rhythm Chest pain is described as Pain is 1 out of 10 mb9 on a pain scale. 13:37 Reassessment: Patient states symptoms have not improved. Adult Sepsis Screening: The mb9 patient does not have new or worsening altered mentation. Patient's respiratory rate is less than 22. Systolic blood pressure is greater than 100. Patient has a qSOFA score of 0- Negative Sepsis Screen. General: Appears in no apparent distress, comfortable, Behavior is appropriate for age, cooperative. Cardiovascular: Rhythm is sinus rhythm Chest pain is described as Pain is 5 out of 10 on a pain scale. is aggravated by eating, pt states, "I just finished eating like 20 minutes ago and now the pain is back". 14:43 Reassessment: Patient appears in no apparent distress at this time. Patient states mb9 feeling better. General: Appears in no apparent distress, Behavior is appropriate for age, cooperative. Respiratory: Airway Respiratory effort is even, Breath sounds are clear bilaterally. Vital Signs: 10:57 BP 142 / 83 (auto/); mb9 10:58 Pulse 74 MON; Pulse Ox 100% ; mb9 10:59 BP 144 / 76; Pulse 76; Resp 16; Temp 96.7(O); Pulse Ox 100% on R/A; Weight 74.84 kg; kr3 Height 5 ft. 7 in. (170.18 cm) (R); 11:27 Pulse 80 MON; Pulse Ox 98% ; mb9 11:27 BP 130 / 76 (auto/); mb9 11:57 Pulse 78 MON; Pulse Ox 97% ; mb9 11:57 BP 129 / 78 (auto/); mb9 12:27 Pulse 82 MON; Pulse Ox 97% ; mb9 12:27 BP 123 / 76 (auto/); mb9 12:57 Pulse 88 MON; Pulse Ox 96% ; mb9 12:57 BP 123 / 84 (auto/); mb9 13:27 Pulse 80 MON; Pulse Ox 97% ; mb9 13:27 BP 123 / 78 (auto/); mb9 13:57 Pulse 80 MON; Pulse Ox 97% ; mb9 13:57 BP 125 / 83 (auto/); mb9 14:27 BP 121 / 75 (auto/); mb9 14:27 Pulse 76 MON; Resp 17; Temp 98.7; Pulse Ox 97% ; mb9 10:59 Body Mass Index 25.84 (74.84 kg, 170.18 cm) kr3 Vitals: 10:43 Log In Time: August 01, 2016 at 10:43. RN notified that patient meets Red Flag jlf criteria. ED Course: 10:43 Patient visited by Marycruz Seo PCA. jlf 10:43 Patient moved to Waiting jlf 10:44 Patient visited by Marycruz Seo PCA. jlf 10:44 Patient moved to PD kr3 10:53 Phi Mariano PA-C is PHCP. jk8 10:53 Astrid Fletcher MD is Attending Physician. jk8 10:53 Patient visited by Phi Mariano PA-C. jk8 10:55 Patient moved to 19 kr3 11:03 Triage Initiated mb9 11:11 Astrid Fletcher MD is Attending Physician. sd1 11:15 The patient / caregiver is instructed regarding the plan of care and ED course. Patient hunter has correct armband on for positive identification. Placed in gown. 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 Pulse ox on. NIBP on. 11:28 [facility] Payment Agreement was scanned into [employer] and attached to record. lg 11:30 Patient visited by Susy Singh PCA. ct3 11:38 Chest, 2 View (pa\\E\\lat) Returned. EDMS 12:00 Basic Metabolic Profile Sent. mb9 12:00 CBC with Diff Sent. mb9 12:00 Cardiac Injury Profile Sent. mb9 12:00 D-Dimer Quant Sent. mb9 12:00 Troponin Sent. mb9 12:00 Inserted saline lock: 20 gauge in right antecubital area and blood collected. The mb9 patient tolerated the procedure well. 12:00 Missed attempts: 18 gauge in right antecubital area. mb9 12:32 Patient moved to OBSERVATION sd1 12:50 Patient visited by Susy Singh PCA. ct3 12:50 Diet: Patient given regular meal. ct3 13:46 CARDIAC MARKER PANEL Sent. mb9 13:57 Patient visited by Alyssa Abel. lr2 13:57 EKG done. (by ED staff). Reviewed by Astrid Fletcher MD. lr2 14:25 Melissa Liu [facility] is Referral Physician. sd1 14:27 Discontinued IV lock intact, bleeding controlled, pressure dressing applied, No mb9 redness/swelling at site. No procedures done that require assistance. 14:47 EKG-ADULT Returned. EDMS 14:47 ECG WITH READING ER PHYS Returned. EDMS 16:02 T-Sheet-- Draft Copy was scanned into [employer] and attached to record. gb 16:02 ECG/EKG was scanned into [employer] and attached to record. gb Administered Medications: 11:01 Drug: Aspirin 324 mg [aspirin 81 mg chewable tablet (4 tabs)] Route: PO; mb9 11:59 Drug: ketorolac 30 mg [ketorolac 30 mg/mL (1 mL) injection solution (1 mL)] Route: IVP; mb9 Site: right antecubital; 13:58 Drug: GI Cocktail - (Alum-Mag Hydroxide-Simeth Suspension 225 mg-200 mg-25 mg/5 mL 30 mb9 ml, Lidocaine Liquid 2 % 10 ml, Hyoscyamine Liquid 10 ml) Route: PO; 13:59 Drug: Sucralfate 1 grams [sucralfate 1 gram tablet (1 tabs)] Route: PO; mb9 Order Results: Lab Order: Basic Metabolic Profile; SPEC'M 08/01/16 11:56 Test: GLUCOSE, FASTING; Value: 95; Range: 70-105; Units: MG/DL; Status: F Test: BLOOD UREA NITROGEN; Value: 15; Range: 7-18; Units: MG/DL; Status: F Test: CREATININE FOR GFR; Value: 1.31; Range: 0.70-1.30; Abnormal: Above high normal; Units: MG/DL; Status: F Test: GLOMERULAR FILTRATION RATE; Value: > 60.0; Range: >60; Status: F Test: SODIUM LEVEL; Value: 141; Range: 136-145; Units: MEQ/L; Status: F Test: POTASSIUM SERUM; Value: 4.1; Range: 3.5-5.1; Units: MEQ/L; Status: F Test: CHLORIDE LEVEL; Value: 107; Range: 98-107; Units: MEQ/L; Status: F Test: CARBON DIOXIDE LEVEL; Value: 25; Range: 21-32; Units: MEQ/L; Status: F Test: ANION GAP; Value: 9; Range: 8-16; Units: MEQ/L; Status: F Test: CALCIUM LEVEL; Value: 8.8; Range: 8.5-10.1; Units: MG/DL; Status: F Test Note: ; Units are mL/min/1.73 m2 Chronic Kidney Disease Staging per NKF: Stage I & II GFR >=60 Normal to Mildly Decreased Stage III GFR 30-59 Moderately Decreased Stage IV GFR 15-29 Severely Decreased Stage V GFR <15 Very Little GFR Left ESRD GFR <15 on HIP HOP DANCER Lab Order: CBC with Diff; JOCY 08/01/16 11:56 Test: WHITE BLOOD COUNT; Value: 4.6; Range: 4.0-10.0; Units: K/mm3; Status: F Test: RED BLOOD COUNT; Value: 4.93; Range: 4.30-6.10; Units: M/mm3; Status: F Test: HEMOGLOBIN; Value: 15.4; Range: 14.0-18.0; Units: g/dl; Status: F Test: HEMATOCRIT; Value: 43.9; Range: 42.0-52.0; Units: %; Status: F Test: MEAN CORPUSCULAR VOLUME; Value: 89.0; Range: 80.0-96.0; Units: fl; Status: F Test: MEAN CORPUSCULAR HEMOGLOBIN; Value: 31.3; Range: 27.0-33.0; Units: pg; Status: F Test: MEAN CORPUSCULAR HGB CONC; Value: 35.2; Range: 32.0-36.5; Units: g/dl; Status: F Test: RED CELL DISTRIBUTION WIDTH; Value: 12.8; Range: 11.5-14.5; Units: %; Status: F Test: PLATELET COUNT, AUTOMATED; Value: 234; Range: 150-450; Units: k/mm3; Status: F Test: NEUTROPHILS %; Value: 60.1; Range: 36.0-66.0; Units: %; Status: F Test: LYMPH %; Value: 30.1; Range: 24.0-44.0; Units: %; Status: F Test: MONO %; Value: 5.0; Range: 0.0-5.0; Units: %; Status: F Test: EOS %; Value: 2.7; Range: 0.0-3.0; Units: %; Status: F Test: BASO %; Value: 0.9; Range: 0.0-1.0; Units: %; Status: F Test: LARGE UNSTAINED CELL %; Value: 1.2; Range: 0.0-4.0; Units: %; Status: F Test: NEUTROPHILS #; Value: 2.8; Range: 1.8-7.7; Units: K/mm3; Status: F Test: LYMPH #; Value: 1.5; Range: 1.5-4.5; Units: K/mm3; Status: F Test: MONO #; Value: 0.2; Range: 0.0-0.8; Units: K/mm3; Status: F Test: EOS #; Value: 0.1; Range: 0.0-0.50; Units: K/mm3; Status: F Test: BASO #; Value: 0.0; Range: 0.0-0.2; Units: K/mm3; Status: F Test: LARGE UNSTAINED CELL #; Value: 0.1; Range: 0.0-0.4; Units: K/mm3; Status: F Lab Order: Cardiac Injury Profile; [facility]08/[facility] 11:56 Test: CPK CREATINE PHOSPHOKINASE; Value: 198; Range: 39-308; Units: U/L; Status: F Test: CK-MB VALUE MASS; Value: 1.6; Range: 0.0-3.6; Units: NG/ML; Status: F Test: MB/CK RELATIVE INDEX; Value: 0.80; Range: < OR =4; Status: F Test Note: ; DIAGNOSIS CRITERIA MMB ng/ml Relative Index (RI) NON-AMI < or = 5 N/A ALMODOVAR ZONE > 5 < or = 4 AMI > 5 > 4 Lab Order: D-Dimer Quant; [facility] 11:56 Test: D-DIMER QUANT; Value: 270.7; Range: <500; Units: ng/ml; Status: F Lab Order: Troponin; 08/01/16 11:56 Test: TROPONIN I; Value: < 0.02; Range: < 0.10; Units: NG/ML; Status: F Test Note: ; Troponin I Reference Interval for CelebCalls LOCI: 99th Percentile= 0.00-0.045 ng/ml Risk Stratification: <= 0.10 ng/ml Decreased Risk for Adverse Clinical Events. 0.10-1.50 ng/ml Increased Risk for Adverse Clinical Events. Evaluation of additional criterion and/or repeat testing in 2-6 hours is suggested to rule out myocardial damage. >= 1.50 ng/ml Indicative of Myocardial Injury. Lab Order: CARDIAC MARKER PANEL; [facility] 08/01/16 13:44 Test: CPK CREATINE PHOSPHOKINASE; Value: 198; Range: 39-308; Units: U/L; Status: F Test: CK-MB VALUE MASS; Value: 1.3; Range: 0.0-3.6; Units: NG/ML; Status: F Test: MB/CK RELATIVE INDEX; Value: 0.65; Range: < OR =4; Status: F Test: TROPONIN I; Value: < 0.02; Range: < 0.10; Units: NG/ML; Status: F Test Note: ; DIAGNOSIS CRITERIA MMB ng/ml Relative Index (RI) NON-AMI < or = 5 N/A ALMODOVAR ZONE > 5 < or = 4 AMI > 5 > 4 Lab Order: Liver Profile; [facility] 08/01/16 11:24 Test: AST/SGOT; Value: 20; Range: 15-37; Units: U/L; Status: F Test: ALT/SGPT; Value: 40; Range: 12-78; Units: U/L; Status: F Test: ALKALINE PHOSPHATASE; Value: 92; Range: 45-117; Units: U/L; Status: F Test: BILIRUBIN,TOTAL; Value: 0.5; Range: 0.2-1.0; Units: MG/DL; Status: F Test: BILIRUBIN,DIRECT; Value: < 0.1; Range: 0.0-0.2; Units: MG/DL; Status: F Test: TOTAL PROTEIN; Value: 7.5; Range: 6.4-8.2; Units: GM/DL; Status: F Test: ALBUMIN; Value: 4.2; Range: 3.2-5.2; Units: GM/DL; Status: F Test: ALBUMIN/GLOBULIN RATIO; Value: 1.27; Range: 1.00-1.93; Status: F Lab Order: Lipase; [facility] 08/01/16 11:24 Test: LIPASE; Value: 145; Range: 73-393; Units: U/L; Status: F Radiology Order: EKG-ADULT Test: EKG-ADULT REASON FOR EXAMINATION: Chest Pain; Stationary ECG Study; [facility] ED; ; Test Date: 2016-08-01; Pat Name: [facility] Department:; Room: -; 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 .; ; Comparison study: No comparison studies .; ; Findings: The lungs are well inflated and free of infiltrate. The pleural; angles are sharp. The heart size is normal. Pulmonary vasculature is not; increased. No significant bony abnormality is seen. 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 sd1 14:27 Discharge Assessment: Patient awake, alert and oriented x 3. No cognitive and/or mb9 functional deficits noted. Patient verbalized understanding of disposition instructions. patient administered narcotics - no. The following High Risk Discharge criteria are identified: None. Condition: good Condition: stable Condition: improved. Discharge instructions given to patient, Instructed on discharge instructions, follow up and referral plans. medication usage, Demonstrated understanding of instructions, medications, Pt was receptive of discharge instructions/ teaching. Prescriptions given X 2. No special radiology studies were completed. Property :Personal belongings accompany Pt. 14:51 Patient left the ED. mb9 Signatures: Dispatcher [employer] EDMS Astrid Fletcher MD MD sd1 Siomara Marquez, Reg Reg gb Joe Meraz, Reg Reg lg Yamile Hunt,RN RN kr3 Susy Singh, INDUSTRIAL SEAMSTRESS INDUSTRIAL SEAMSTRESS ct3 Marycruz Seo, INDUSTRIAL SEAMSTRESS INDUSTRIAL SEAMSTRESS cruzf Gurmeet NicholsRN RN mb9 Phi Mariano PA-C PA-C jk8 Alyssa Abel2 Chart Complete MUNIRA
== END 2016-08-01 14:51 | disposition home or self-care (01) ==
LOC: M ED 10:42
DX: R07.9 Chest pain, unspecified (principal); M54.5 Low back pain; M77.8 Other enthesopathies, not elsewhere classified; Z87.891 Personal history of nicotine dependence; Z79.899 Other long term (current) drug therapy
CPT/HCPCS: 36415; 71020; 80048; 80076; 82550; 82553; 83690; 85025; 85379; 93005; 93041; 96374; 99285; J1885